=== PATIENT | female | born 1945 | race Caucasian/White ===

== ENCOUNTER → 2019-03-02 | Outpatient (CLI) | payer MEDICARE ==
[~2019-03-02] MED LIST: AMBIEN5 MG PO; AMIODARONE HCL200 MG PO; AMITRIPTYLINE H75 MG PO; AMITRIPTYLINE100 MG PO; DIGOXIN125 MCG PO; LASIX40 MG PO; LEVOTHYROXINE88 MCG PO; LISINOPRIL2.5 MG PO; METOPROLOL TART25 MG PO; PLAVIX75 MG PO; POTASSIUM CHLO10 ME1 PO; REGADENOSON 0.4 MG/5 ML SYR IV ONE; XARELTO10 MG PO; Z.0.LEVOTHYROXINE88 PO; Z.0.NIASPAN500 MG; Z.0.PLAVIX75 MG PO; Z.0.ZOLOFT25 MG
--- NOTE | 2019-03-14 16:14 | Myoview Stress Test ---
DATE OF STUDY: 03/02/2019 09:39:00 Stress Test - Treadmill ONLY PROCEDURE TITLE: Rest/stress single isotope SPECT imaging with pharmacologic stress and gated SPECT imaging. INDICATION: Heart failure. PROCEDURE IN DETAIL: Pharmacologic stress testing was performed with regadenoson per protocol. The heart rate was 62 beats per minute at rest and increased to 80 beats per minute during the regadenoson infusion. The resting blood pressure 114/70 mmHg and decreased to 108/76 mmHg, which is a normal response. The resting EKG demonstrated normal sinus rhythm. There were no ST-segment changes suggestive of myocardial ischemia. Myocardial perfusion imaging was performed at rest following the injection of 9.7 millicurie of tetrofosmin. At peak pharmacologic effect, the patient was injected with 28.7 millicurie of tetrofosmin. Gated post-stress tomographic imaging was performed. FINDINGS: The quality of study is fair. Left ventricular cavity is noted to be normal size on the rest and stress studies. SPECT images demonstrate homogeneous tracer distribution throughout the myocardium. Gated SPECT imaging reveals normal myocardial thickening and wall motion. The left ventricular ejection fraction calculated be greater than 70%. IMPRESSION: Myocardial perfusion imaging is normal. Overall left ventricular systolic function was normal without regional wall motion abnormalities. Janis Velazquez MD ABS/MODL /[id number]
== END ==
LOC: NM 09:26
PROVIDERS: ATTEND Internal Medicine Cardiovascular Disease
DX: I50.9 Heart failure, unspecified (principal)
CPT/HCPCS: 78452; 93017; A9502; J2785